=== PATIENT | female | born 1985 | race Caucasian/White ===

== ENCOUNTER 2018-10-03 11:57 | Inpatient (IN) | payer MEDICAID ==
[~2018-10-03] VITALS: Ht 154.9 cm; Wt 81.0 kg
[2018-10-03 12:15] VITALS: Ht 154.9 cm; Wt 81.0 kg
[2018-10-03 12:23] VITALS: BP 105/87; PULSE 71; RESP 19
[2018-10-03] MEDS ORDERED: OXYTOCIN 30 UNITS/LR 500 ML IV SCH ×3 (12:30→14:00)
[2018-10-03] MEDS ORDERED: IBUPROFEN 600 MG TAB PO PRN (12:30)
[2018-10-03] MEDS ORDERED: BUTORPHANOL 2 MG INJ IV PRN (12:30)
[2018-10-03] MEDS ORDERED: CARBOPROST 250 MCG INJ IM PRN (12:30)
[2018-10-03] MEDS ORDERED: METHYLERGONOVINE 0.2 MG INJ IM PRN (12:30)
[2018-10-03] MEDS ORDERED: LIDOCAINE 1% (MPF) 30 ML INJ INJ PRN (12:30)
[2018-10-03] MEDS ORDERED: MISOPROSTOL 200 MCG TAB PR PRN (12:30)
[2018-10-03] MEDS ORDERED: OXYTOCIN 30 UNITS/LR 500 ML IV PRN (12:30)
[2018-10-03] MEDS ORDERED: PREN1TAB71 PO (13:07)
[2018-10-03] MEDS: LACTATED RINGER'S 1,000 ML IV SCH ×3 (14:22→21:25)
--- NOTE | 2018-10-03 20:56 | PREAC ---
Date/Time of Note Date/Time of Note DATE: 10/03/18 TIME: 20:55 Anesthesia Eval and Record Evaluation Time Pre-Procedure Interview DATE: 10/03/18 TIME: 20:55 Age 33 Sex female NPO: 8 hrs Preoperative diagnosis labor pain Planned procedure labor epidural Past Medical History Past Medical History: None Surgery & Anesthesia Issues No known issue Meds Anticoagulation: No Beta Alejandro within 24 hr: No Reason Beta Alejandro not given: Pt. not on B-Alejandro Reported Medications Vit No.130/Iron/FA ( Tablet) 1 Each Tablet, 1 EACH PO, TAB 10/03/18 Current Medications Lactated Ringer's 1,000 ml @ 125 mls/hr Q8H IV Last administered on 10/03/18at 19:18; Admin Dose 125 MLS/HR; Start 10/03/18 at 12:17 Butorphanol Tartrate (Stadol) 2 mg Q2H PRN IV .PAIN; Start 10/03/18 at 12:30 Lidocaine (Xylocaine 1% (Mpf)) 30 ml ONCE PRN INJ .EPISIOTOMY; Start 10/03/18 at 12:30 Oxytocin/Lactated Ringer's 500 ml @ 500 mls/hr ONCE POST IV ; Start 10/03/18 at 12:30 Oxytocin/Lactated Ringer's 500 ml @ 125 mls/hr POST IV ; Start 10/03/18 at 12:30 Ibuprofen (Motrin) 600 mg ONCE PRN PO .PAIN 1-5; Start 10/03/18 at 12:30 Oxytocin/Lactated Ringer's 500 ml @ 0 mls/hr ONCE PRN IV .VAGINAL BLEEDING; Start 10/03/18 at 12:30 Methylergonovine Maleate (Methergine) 0.2 mg ONCE PRN IM .VAGINAL BLEEDING; Start 10/03/18 at 12:30 Carboprost Tromethamine (Hemabate) 250 mcg ONCE PRN IM .VAGINAL BLEEDING; Start 10/03/18 at 12:30 Misoprostol (Cytotec) 1,000 mcg ONCE PRN [place] .VAGINAL BLEEDING; Start 10/03/18 at 12:30 Oxytocin/Lactated Ringer's 500 ml @ 0 mls/hr FOR INDUCTION IV Last administered on 10/03/18at 14:22; Admin Dose 1 MLS/HR; Start 10/03/18 at 14:00 Meds reviewed: Yes Allergies Coded Allergies: No Known Allergy (Unverified , 10/03/18) Allergies Reviewed: Yes Labs/Studies Labs Reviewed: Reviewed by anesthesiologist Result Diagram: 10/03/18 1240 Laboratory Tests 10/03/18 12:40 Blood Bank Test 10/03/18 12:40 Antibody Screen NEGATIVE Blood Type O POSITIVE Rh Immune Globulin Candidate NO test: Positive Pre-procedure Exam Last vitals Vital Signs Date Temp Pulse Resp B/P (MAP) Pulse Ox O2 O2 Flow FiO2 Time Delivery Rate 10/03/18 98.4 71 19 105/87 Room Air 12:23 (93) Airway: Adequate mouth opening, Adequate thyromental dist Mallampati: Mallampati III Teeth: Normal Lung: Normal Heart: Normal ASA Physical Status ASA physical status: 2 Emergency: None Planned Anesthetic Neuraxial: Epidural Planned Pain Management Epidural, Parenteral pain med Pre-operative Attestations Prior to commencing anesthesia and surgery, the patient was re-evaluated, there was verification of: *The patient's identity *The results of appropriate recent lab work and preoperative vital signs *The above evaluation not changing prior to induction *Anesthetic plan, risk benefits, alternative and complications discussed with patient/family; questions answered; patient/family understands, accepts and wishes to proceed. JOSE M BAKER MD Oct 03, 2018 20:56
[2018-10-03] MEDS ORDERED: HYDROmorphONE 0.5 MG/0.5 ML SYG IV PRN ×2 (21:00)
[2018-10-03] MEDS ORDERED: ONDANSETRON 4 MG INJ IV PRN (21:00)
[2018-10-03] MEDS ORDERED: FENTAnyl 2MCG/ML-ROPIV 0.2% 100 ML BAG EPI SCH (21:00)
[2018-10-03] MEDS ORDERED: DIPHENHYDRAMINE 50 MG INJ IV PRN (21:00)
[2018-10-03] MEDS ORDERED: KETOROLAC 30 MG INJ IV PRN (21:00)
[2018-10-03] MEDS ORDERED: ZOLPIDEM 5 MG TAB PO PRN (21:00)
[2018-10-03] MEDS ORDERED: NALOXONE (0.4 MG/ML) INJ IV PRN ×2 (21:00)
--- NOTE | 2018-10-03 22:09 | PAC ---
Date/Time of Note Date/Time of Note DATE: 10/03/18 TIME: 22:09 Post-Anesthesia Notes Post-Anesthesia Note Last documented vital signs Vital Signs Date Temp Pulse Resp B/P (MAP) Pulse Ox O2 O2 Flow FiO2 Time Delivery Rate 10/03/18 98.4 71 19 105/87 Room Air 12:23 (93) Activity: WNL Respiratory function: WNL Cardiovascular function: WNL Mental status: Baseline Pain reasonably controlled: Yes Hydration appropriate: Yes Nausea/Vomiting absent: Yes JOSE M BAKER MD Oct 03, 2018 22:09
[2018-10-04] MEDS: LACTATED RINGER'S 1,000 ML IV SCH (04:04)
[2018-10-04] MEDS: FENTAnyl 2MCG/ML-ROPIV 0.2% 100 ML BAG EPI SCH ×2 (05:08→11:05)
[2018-10-04] MEDS ORDERED: MINERAL OIL LIGHT 10 ML VIAL TOP ONE (11:30)
[2018-10-04] MEDS ORDERED: OXYTOCIN 30 UNITS/LR 500 ML IV SCH (11:40)
--- NOTE | 2018-10-04 11:40 | LDN ---
Date/Time of Note Date/Time of Note DATE: 10/04/18 TIME: 11:39 Delivery Summary Weeks of Gestation 40 Placenta Delivered: Spontaneously Meconium: none Perineal laceration: 1 Laceration repair: 1st degree peneal laceration repair with 2-0 and 3-0 chromic Anesthesia type: Epidural Estimated blood loss: 150 Sponge & Needle done & correct: Yes All needle counts correct: Yes Any foreign bodies felt in the: No Delivery Information Sex Sex: female Apgars 1 Minute: 9 5 Minute: 9 Suctioning Nose & mouth suctioned at trena: No Delee suction performed: No Umbilical Cord Umbilical cord with: 3 Vessels Cord presentations: nuchal cord Nuchal cord present X: 1 Cord Blood was obtained: Yes SHEILA BHAGAT MD Oct 04, 2018 11:40
[2018-10-04] MEDS ORDERED: LANOLIN HPA 1 PKT TOP PRN (12:00)
[2018-10-04] MEDS ORDERED: OXYCODONE/ASPIRIN (4.88/325) TAB PO PRN ×2 (12:00)
[2018-10-04] MEDS ORDERED: METHYLERGONOVINE 0.2 MG INJ IM PRN (12:00)
[2018-10-04] MEDS ORDERED: MISOPROSTOL 200 MCG TAB PR PRN (12:00)
[2018-10-04] MEDS ORDERED: WITCH HAZEL/GLYCERIN PAD PR PRN (12:00)
[2018-10-04] MEDS ORDERED: NACL 0.9% 3 ML SYG IV SCH (12:00)
[2018-10-04] MEDS ORDERED: CARBOPROST 250 MCG INJ IM PRN (12:00)
[2018-10-04] MEDS ORDERED: ONDANSETRON 4 MG INJ IV PRN (12:00)
[2018-10-04] MEDS ORDERED: OXYTOCIN 30 UNITS/LR 500 ML IV PRN (12:00)
[2018-10-04] MEDS ORDERED: BENZOCAINE 20% 56 ML SPRAY TOP PRN (12:00)
--- NOTE | 2018-10-04 12:24 | PREOPHP ---
DATE OF ADMISSION: 10/03/2018 HISTORY OF PRESENT ILLNESS: Mi Anaya is a 33-year-old 2, para 1, EDC 09/30/2018, admit bonnie yesterday for post-EDC induction. She is currently at 40 weeks and 4 days gestational age. She is currently fully dilated, 100% effaced at +1 station with artificial rupture of membrane. She curr ently has an epidural for anesthesia. care at [facility]. PAST MEDICAL HISTORY: None. MEDICATIONS: vitamins. PAST SURGICAL HISTORY: None. OBSTETRICAL HISTORY: x1 vaginal delivery. GYNECOLOGIC HISTORY: 12, regular 3 to 4 days. Denies any sexually transmitted disease. Sexually ac tive with 1 partner. SOCIAL HISTORY: Denies any smoking, drugs or alcohol. FAMILY HISTORY: None. REVIEW OF SYSTEMS: All within normal except history of present illness. PHYSICAL EXAMINATION: HEENT: Within normal. LUNGS: CTA bilateral. CARDIOVASCULAR: S1, S2, regular rhythm. ABDOMEN: Gravid, nontender. Negative CVA bilateral. EXTREMITIES: Negative edema. No calf tenderness. PELVIC: Vaginal exam fully dilated, 100% effaced, +1 station with artificial rupture of membranes. ASSESSMENT: Intrauterine at 40 weeks and 4 days gestational age, admitted for post-EDC ind uction, currently on Pitocin. PLAN: Anticipate vaginal delivery. Dictated By: SHEILA KASPER/NICCI Conf#: [id number] DID#: [id number]
[2018-10-04] MEDS: IBUPROFEN 600 MG TAB PO SCH ×2 (12:41→17:12)
[2018-10-04 13:40] VITALS: BP 116/70; PULSE 50; RESP 17
[2018-10-04 14:30] VITALS: BP 121/72; PULSE 56; RESP 16
[2018-10-04 16:00] VITALS: BP 124/74; PULSE 55; RESP 17
[2018-10-04 20:02] VITALS: BP 101/56; PULSE 60; RESP 16
[2018-10-04] MEDS: SENNA/DOCUSATE NA (8.6MG/50MG) TAB PO SCH (20:51)
[2018-10-05] MEDS: IBUPROFEN 600 MG TAB PO SCH ×5 (00:17→23:56)
[2018-10-05 04:00] VITALS: BP 99/58; PULSE 59; RESP 20
[2018-10-05 08:47] VITALS: BP 101/49; PULSE 64; RESP 17
[2018-10-05] MEDS: SENNA/DOCUSATE NA (8.6MG/50MG) TAB PO SCH ×2 (09:07→21:11)
--- NOTE | 2018-10-05 12:10 | PD.PPDC ---
PICTURE PAINTER Discharge Instruction Condition [id number] Patient Condition: Gcefb1y Good Diet [id number] Diet: Ocvlw7v Resume Regular Diet Activity/Restrictions [id number] Activity: Onsdh1i Normal Activity May Shower [id number] Restrictions: Kmgwc3t No Exercising No Lifting No Driving No Sexual Activity Nothing in the Vagina No [place] No Tampons, douche Follow-up Follow-up with Physician: 3, Week/Weeks Return to clinic for [id number] MANAGER IT TRAINING Instructions: [id number] Fever greater than 101 Chills Worsening abdominal pain Excessive Vaginal Bleeding More than 2 pads per hour Unable to tolerate diet [id number] OB Instructions: Otpaz3n Breast Tenderness Depression Blurried Vision Headache [id number] Surgical Instructions: Rfyis3y Incisional Drainage Incisional Redness SHEILA BHAGAT MD Oct 05, 2018 12:10
--- NOTE | 2018-10-05 12:11 | DS ---
Date/Time of Note Date/Time of Note DATE: 10/05/18 TIME: 12:10 Obstetrical Discharge Record Final Diagnosis Final Diagnosis: Term delivered Vaginal Delivery Obstetrical Delivery: Spontaneous, Laceration, Repaired Condition on Discharge Physical Assessment Last Vitals: stable afebrile Voiding: Yes Bowel Movement: Yes Breast: Soft, non-tender, Filling Fundus: Firm Calf Tenderness: No Patient Condition: Fair HSEILA BHAGAT MD Oct 05, 2018 12:11
[2018-10-05 16:10] VITALS: BP 103/59; PULSE 69; RESP 14
[2018-10-05 20:10] VITALS: BP 99/55; PULSE 65; RESP 19
[2018-10-06 03:30] VITALS: BP 92/55; PULSE 63; RESP 21
[2018-10-06] MEDS: IBUPROFEN 600 MG TAB PO SCH ×2 (05:31→11:19)
[2018-10-06 07:45] VITALS: BP 98/53; PULSE 62; RESP 18
[2018-10-06] MEDS: SENNA/DOCUSATE NA (8.6MG/50MG) TAB PO SCH (09:17)
--- NOTE | 2018-10-06 10:56 | PN ---
Date/Time of Note Date/Time of Note DATE: 10/06/18 TIME: 10:54 OB Subjective Subjective Subjective Breast-feeding. Reports decreased vaginal bleeding. Denies any dizziness, lightheadedness, shortness of breath, chest pain or any other complaint OB Objective Objective Objective Appearance: Alert and oriented x4 does not appear to be in any acute distress Abdomen: Soft, fundus firm palpable at the level of the umbilicus Breast: No evidence of mastitis or fissure engorgement Extremities: No calf tenderness, no click no edema no cord palpable CBC & BMP 10/03/18 12:40 10/05/18 06:30 OB Assessment/Plan Other Assessment: status post day #2 Doing well Mild anemia, , asymptomatic DC home Follow-up in 6 is or sooner as needed To take iron with pill with stool softener SOCO SANTILLAN MD Oct 06, 2018 10:56
--- NOTE | 2018-10-07 13:32 | DELSUM ---
Delivery Summary A-C Datetime Report Generated by CPN: 10/07/2018 13:32 DELIVERY PERSONNEL Splitter Head: Gueritao, Sangita MATERNAL INFORMATION Delivery Anesthesia: Epidural Medications in Delivery: Pitocin Delivery QBL (ml): 150 Placenta Cultured: No Maternal Complications: None LABOR SUMMARY EDC: 09/30/2018 00:00 No. Babies in Womb: 1 Attempted: Yes Labor Anesthesia: Epidural LABOR INFORMATION Reason for Induction: Postterm Onset of Labor: 10/03/2018 21:30 Complete Dilatation: 10/04/2018 10:41 Oxytocin: Induction Group B Beta Strep: Negative Antibiotics # of Doses: none Steroids Given: None Reason Steroids Not Administered: Not Applicable MEMBRANES Membranes Rupture Method: Artificial Rupture of Membranes: 10/04/2018 10:41 Length of Rupture (hr): 0.62 Amniotic Fluid Color: Clear Amniotic Fluid Amount: Small Amniotic Fluid Odor: None STAGES OF LABOR Stage 1 hr: 13 Stage 1 min: 11 Stage 2 hr: 0 Stage 2 min: 37 Stage 3 hr: 0 Stage 3 min: 2 Total Time in Labor hr: 13 Total Time in Labor min: 50 VAGINAL DELIVERY Episiotomy: None Laceration Extension: First Degree Laceration Type: Perineal Laceration Repair: Yes Initial Vag Sponge Count: 10 Final Vag Sponge Count: 10 Initial Vag Sharps Count: 1 Final Vag Sharps Count: 2 Sponge Count Correct: Yes; Vaginal Sweep Performed Sharps Count Correct: Yes BABY A INFORMATION Delivery Date/Time: 10/04/2018 11:18 Method of Delivery: Vaginal Born in Route : Yes : N/A Forceps: N/A Vacuum Extraction: N/A Shoulder Dystocia : N/A SHOULDER DYSTOCIA BABY A Infant Delivery Date/Time: 10/04/2018 11:18 PRESENTATION/POSITION BABY A Presentation: Cephalic Cephalic Presentation: Vertex Vertex Position: Left Occipital Anterior Breech Presentation: N/A PLACENTA INFORMATION BABY A Placenta Delivery Time : 10/04/2018 11:20 Placenta Method of Delivery: Spontaneous Placenta Status: Delivered SCORES BABY A Heart Rate 1 min: >100 bpm Resp Effort 1 min: Good Cry Reflex Irritability 1 min: Cough/Sneeze/Pulls Away Muscle Tone 1 min: Active Motion Color 1 min: Body High Rolls, Extremit Blue Resuscitation Effort 1 min: Tactile Stimulation SCORE 1 MIN: 9 Heart Rate 5 min: >100 bpm Resp Effort 5 min: Good Cry Reflex Irritability 5 min: Cough/Sneeze/Pulls Away Muscle Tone 5 min: Active Motion Color 5 min: Body High Rolls, Extremit Blue Resuscitation Effort 5 min: Tactile Stimulation SCORE 5 MIN: 9 INFORMATION BABY A Gestational Age at Delivery: 40.4 Gestational Status: Full Term- 39- 40.6 Weeks Outcome : Liveborn Infant Condition : Stable Infant Sex: Female IDENTIFICATION/MEDS BABY A ID Band Number: [id number] ID Band Location: Right Leg; Left Arm Sensor Applied: Yes Sensor Number: [id number] Sensor Location : Cord Clamp WEIGHT/LENGTH BABY A Infant Birthweight (gm): 2895 Weight (lb): 6 Infant Weight (oz): 6 Length (in): 18.75 Length (cm): 47.63 CORD INFORMATION BABY A No. Cord Vessels: 3 Nuchal Cord : Around Neck x1, Loose Cord Blood Taken: Yes Infant Suction: Mouth; Nose ASSESSMENT BABY A Complications: Multiple Variable Decels Physical Findings at Delivery: Within Normal Limits Respirations: Appears Normal Relations Mgr/ALS Called : No Care By: Elizabeth Cunningham RN Transferred To: Remains with Mother
== END 2018-10-06 13:30 | disposition home or self-care (01) | DRG 807 ==
LOC: L-D 11:57 → PP1 10-04 13:39
PROVIDERS: ADMIT Obstetrics & Gynecology; ATTEND Obstetrics & Gynecology
PROC: 3E033VJ Introduction of Other Hormone into Peripheral Vein, Percutaneous Approach (ICD-10-PCS; 2018-10-03)
PROC: 10E0XZZ Delivery of Products of Conception, External Approach (ICD-10-PCS; principal; 2018-10-04)
PROC: 0HQ9XZZ Repair Perineum Skin, External Approach (ICD-10-PCS; 2018-10-04)
PROC: 10907ZC Drainage of Amniotic Fluid, Therapeutic from Products of Conception, Via Natural or Artificial Opening (ICD-10-PCS; 2018-10-04)
DX: O48.0 Post-term pregnancy (principal); O70.0 First degree perineal laceration during delivery; O69.81X0 Labor and delivery complicated by cord around neck, without compression, not applicable or unspecified; Z3A.40 40 weeks gestation of pregnancy; Z37.0 Single live birth
CPT/HCPCS: 62322; 76815; 80307; 85025; 85610; 85730; 86592; 86850; 86900; 86901; 87340; J2590; J3010; J7120